=== PATIENT | male | born 1975 | race Caucasian/White ===

== ENCOUNTER → 2018-06-19 | Outpatient (CLI) | payer OTHER | LOC: MHCPAIN 13:15 | DX: G89.29 Other chronic pain (principal); M47.817 Spondylosis without myelopathy or radiculopathy, lumbosacral region; M54.16 Radiculopathy, lumbar region; M53.3 Sacrococcygeal disorders, not elsewhere classified | CPT/HCPCS: G0463 ==

== ENCOUNTER → 2018-06-27 | Outpatient (CLI) | payer OTHER | LOC: MHCPAIN 09:44 | DX: M47.817 Spondylosis without myelopathy or radiculopathy, lumbosacral region (principal); M54.16 Radiculopathy, lumbar region | CPT/HCPCS: J1100; Q9967 ==

== ENCOUNTER → 2018-07-09 | Outpatient (CLI) | payer OTHER | LOC: MHCPAIN 09:44 | DX: G89.29 Other chronic pain (principal); M47.817 Spondylosis without myelopathy or radiculopathy, lumbosacral region; M54.16 Radiculopathy, lumbar region; M53.3 Sacrococcygeal disorders, not elsewhere classified | CPT/HCPCS: G0463 ==

== ENCOUNTER → 2018-07-18 | Outpatient (CLI) | payer OTHER | LOC: MHCPAIN 09:49 | DX: M47.817 Spondylosis without myelopathy or radiculopathy, lumbosacral region (principal); M54.16 Radiculopathy, lumbar region | CPT/HCPCS: J1100; Q9967 ==

== ENCOUNTER → 2018-07-31 | Outpatient (CLI) | payer OTHER | LOC: MHCPAIN 09:59 | DX: G89.29 Other chronic pain (principal); M47.817 Spondylosis without myelopathy or radiculopathy, lumbosacral region; M54.16 Radiculopathy, lumbar region; M53.3 Sacrococcygeal disorders, not elsewhere classified | CPT/HCPCS: G0463 ==

== ENCOUNTER 2021-04-03 00:02 | Inpatient (IN) | payer OTHER ==
[~2021-04-03] VITALS: Ht 180.3 cm; Wt 104.1 kg
[~2021-04-03 00:02] MED LIST: ARTIFICIAL TEAR15 M7 OP; BUSPAR5 MG PO; COREG 6.256.25 MG/TA PO; DECADRON 1MG TAB1 MG PO; GLUCOPHAGE500 MG/TAB PO; LOVENOX 4040 MG/0.4 SQ; MELATIN 3 MG-11 TAB PO; MUCINEX 60600 MG/TA1 PO; NASAL MOISTURIZ45 ML NS; PEPCID 20MG TAB20 MG PO; PRAVACHOL 20MG20 MG PO; XANAX .25M0.25 MG/TA PO; ZESTRIL 10MG10 MG PO; ZOLOFT 50MG50 MG PO
[2021-04-03 01:09] LABS: BASO # 0.1 K/mm3 (0.0-0.2); BASO % 0.4 % (0.0-2.0); EOS # 0.1 K/mm3 (0.0-0.7); EOS % 1.1 % (0.0-4.0); GRAN # 9.3 K/mm3 (1.4-6.5); GRAN % 72.2 % (42.2-75.2); HEMATOCRIT 38.1 % (42.0-52.0); HEMOGLOBIN 12.3 g/dl (13.5-18.0); LYMPH # 2.2 K/mm3 (1.2-3.4); LYMPH % 17.4 % (20.0-51.0); MEAN CELL VOLUME 89 fl (80.0-100.0); MEAN CORPUSCULAR HEMOGLOBIN 29 pg (27-31); MEAN CORPUSCULAR HGB CONC 32 g/dl (33.0-37.0); MEAN PLATELET VOLUME 11.2 fl (7.4-10.4); MONO # 1.1 K/mm3 (0.1-0.6); MONO % 8.4 % (1.7-9.3); PLATELET COUNT 229 K/mm3 (130-400); RED BLOOD COUNT 4.29 M/mm3 (4.20-5.60); REDCELL DISTRIBUTION WIDTH-CV 14.3 % (11.5-14.5)
[2021-04-03 01:29] LABS: ALANINE AMINOTRANSFERASE 22 U/L (0-55); ALBUMIN 3.7 gm/dL (3.5-5.0); ALKALINE PHOSPHATASE 68 U/L (40-150); ANION GAP 9 mmol/L (7-16); AST,SGOT 10 U/L (5-34); BILIRUBIN,TOTAL 0.3 mg/dL (0.2-1.2); BLOOD UREA NITROGEN 9 mg/dL (9-21); C-REACTIVE PROTEIN 2.34 mg/dL (0.00-0.50); CALCIUM 9.3 mg/dL (8.4-10.2); CARBON DIOXIDE 25 mmol/L (22-29); CHLORIDE 107 mmol/L (98-107); CREATININE, serum 0.62 mg/dL (0.72-1.25); GLUCOSE 103 mg/dL (70-99); POTASSIUM 3.9 mmol/L (3.5-4.5); SODIUM 141 mmol/L (136-145); TOTAL PROTEIN 6.3 gm/dL (6.2-8.1)
[2021-04-03 01:35] LABS: TROPONIN-I < 0.010 ng/mL (0.00-0.033)
--- NOTE | 2021-04-03 05:20 | NUR ---
RECEIVED REPORT FROM Jaime SEYMOUR, RAZ. WAITING FOR PATIENT ARRIVAL FOR ADMIT TO ROOM 316.
--- NOTE | 2021-04-03 05:37 | NUR ---
PATIENT ARRIVED TO ROOM 316 VIA W/C WITH Jaime RN PRESENT TO TRANSPORT PATIENT TO UNIT. PATIENT SITTING AT SIDE OF BED CURRENTLY. ON ROOM. REPORT CHEST PAIN WITH DEEP BREATHES TAKEN.
[2021-04-03] MEDS ORDERED: ATIVAN 0.50.5 MG/TAB PO (05:48)
--- NOTE | 2021-04-03 06:15 | NUR ---
PATIENT REPORTING HAVING PROBLEMS WITH BREATHING, REQUESTING R.T TREATMENT. INFORMED R.T. OF PATIENT'S REQUEST.
--- NOTE | 2021-04-03 07:00 | NUR ---
HOSPITALIST PROVIDER MESHA MACHUCA APRN, CLARIFIED CONSULT FROM GI TO ENT REGARDING HEALING PREV. TRACH SITE. INFORMED DAY RN OF CONSULT CLARIFICATION AND WILL CONTACT ENT PROVIDER BRIGETTE.
[2021-04-03 07:19] VITALS: BP 150/89; PULSE 94; TEMP 97.8
--- NOTE | 2021-04-03 07:21 | NUR ---
CHANGE OF SHIFT REPORT GIVEN TO DAY SHIFT RNKORTNEY.
[2021-04-03 11:50] VITALS: BP 154/94; PULSE 84; TEMP 97.7
--- NOTE | 2021-04-03 11:52 | NUR ---
Patient expressed breathing discomfort, feels as though his throat is tight and swelling. Dr. Chan notified and assessed. ENT consult called and Dr. Gibson stated he would be in sometime this afternoon to assess the patient. Otherwise, patient does not have any complaints/concerns. Patient's is at the bedside.
--- NOTE | 2021-04-03 14:53 | NUR ---
GINO met with pt, ex- present in room. They are engaged again. Ex-, Jamarcus [id number] they live together with their 3 children. The pt reports independent on all ADLS and uses a CPAP. He reports being in [facility] recently. PCP is Ilan and gets [place] from [place]. The pt reports no DPOA-HC and is interested in DPOA-HC FORM. DC:HOME
[2021-04-03 16:27] VITALS: BP 143/88; PULSE 92; TEMP 98.6
--- NOTE | 2021-04-03 18:36 | NUR ---
Patient called stating he had swelling in his right hand and BEN lower legs. This RN assessed, and found very minimal swelling to be present. No reddness, warmth, pitting, or tenderness was present. Felecia was called and IV fluids were discontinued. Patient instructed to elevate his right arm and legs.
[2021-04-03 20:11] VITALS: BP 165/81; PULSE 99; TEMP 98.1
[2021-04-03 23:52] VITALS: BP 147/91; PULSE 98; TEMP 97.8
[2021-04-04 03:58] VITALS: BP 155/82; PULSE 97; TEMP 97.6
--- NOTE | 2021-04-04 04:21 | NUR ---
RESTING QUIETLY. NO DYSPNEA DURING INITIAL ASSESSMENT BUT PT WAS AWAKENED DURING THE NIGHT AND WAS SOMEWHAT DYSPNEIC. HE STATES HE CAN TELL HIS ESOPHAGUS IS NARROWED.
[2021-04-04 06:45] LABS: GRAN # 9.9 K/mm3 (1.4-6.5); GRAN % 86.7 % (42.2-75.2); HEMATOCRIT 42.8 % (42.0-52.0); HEMOGLOBIN 13.8 g/dl (13.5-18.0); LYMPH # 1.3 K/mm3 (1.2-3.4); LYMPH % 11.2 % (20.0-51.0); MEAN CELL VOLUME 89 fl (80.0-100.0); MEAN CORPUSCULAR HEMOGLOBIN 29 pg (27-31); MEAN CORPUSCULAR HGB CONC 32 g/dl (33.0-37.0); MEAN PLATELET VOLUME 11.2 fl (7.4-10.4); MONO # 0.2 K/mm3 (0.1-0.6); MONO % 1.6 % (1.7-9.3); PLATELET COUNT 292 K/mm3 (130-400); RED BLOOD COUNT 4.81 M/mm3 (4.20-5.60); REDCELL DISTRIBUTION WIDTH-CV 13.9 % (11.5-14.5)
[2021-04-04 07:00] LABS: CALCIUM 10.6 mg/dL (8.4-10.2); CREATININE, serum 0.69 mg/dL (0.72-1.25); POTASSIUM 4.2 mmol/L (3.5-4.5)
[2021-04-04 07:47] VITALS: BP 148/91; PULSE 106; TEMP 98.2
[2021-04-04] MEDS ORDERED: ELIQUIS 5MG PO (09:13)
[2021-04-04] MEDS ORDERED: PREDNISONE20 MG PO (09:16)
--- NOTE | 2021-04-04 09:47 | NUR ---
Patient laying in bed upon entering the room. Patient expressed concern over his elevated BP and asked if he should be on a 2nd BP medication; Hospitalist notified of this concern. Otherwise, patient's IV was covered so he could shower.
[2021-04-04] MEDS ORDERED: TRANSDERM-0.5 MG/21 TD (09:50)
--- NOTE | 2021-04-04 09:57 | NUR ---
Initial visit; Patient thanked Wire Worker for looking in on him since he's returned to the hospital and for keeping him in her prayers.
[2021-04-04 11:30] VITALS: BP 141/90; PULSE 93; TEMP 98.3
--- NOTE | 2021-04-04 13:39 | NUR ---
Patient verbalizes that he would like to establish a DPOA-HC. Form and education provided. Patient lists Jamarcus Pinonparisa ([phone]) and Miller Jarrell ([phone]). Signed copy placed in the patients chart. Original and additional copies provided back to the patient.
--- NOTE | 2021-04-04 15:19 | NUR ---
Patient discarged home w/ . IV and tele were discontinued by this RN. Patient had a panic attack before discharge. PRN ativan was given, BP was taken and was elevated (171/94); Dr. Chan and Venessa notified. Dr. Chan felt it was still safe to discharge the patient and the elevated BP was r/t the panic attack.
== END 2021-04-04 15:15 | disposition home or self-care (01) | DRG 176 ==
LOC: COL.ER 00:02 → MEDICAL 04:43
PROVIDERS: Emergency Medicine; Physician Assistant; ADMIT Internal Medicine
DX: I26.93 Single subsegmental thrombotic pulmonary embolism without acute cor pulmonale (principal); G72.81 Critical illness myopathy; G62.81 Critical illness polyneuropathy; F41.9 Anxiety disorder, unspecified; F32.A Depression, unspecified; F43.10 Post-traumatic stress disorder, unspecified; G47.00 Insomnia, unspecified; I10 Essential (primary) hypertension; E11.9 Type 2 diabetes mellitus without complications; J39.8 Other specified diseases of upper respiratory tract; E78.5 Hyperlipidemia, unspecified; G47.33 Obstructive sleep apnea (adult) (pediatric); Z87.891 Personal history of nicotine dependence; Z86.16 Personal history of COVID-19
CPT/HCPCS: 99223-AI; 99239; J1650; J2920; J7030; Q9967

== ENCOUNTER 2021-04-09 11:10 | Emergency (ER) | payer OTHER ==
[~2021-04-09] VITALS: Ht 180.3 cm; Wt 102.3 kg
[~2021-04-09 11:10] MED LIST changes: +ATIVAN 0.50.5 MG/TAB PO; +ELIQUIS 5MG PO; +PREDNISONE20 MG PO; +TRANSDERM-0.5 MG/21 TD
[2021-04-09 11:14] VITALS: TEMP 98.1
[2021-04-09] MEDS ORDERED: PREDNISONE10 MG PO (12:52)
[2021-04-09 13:01] VITALS: BP 118/92; PULSE 100
== END 2021-04-09 13:08 | disposition home or self-care (01) ==
LOC: COL.ER 11:10
DX: R06.1 Stridor (principal); Z86.711 Personal history of pulmonary embolism; Z86.16 Personal history of COVID-19; Z79.01 Long term (current) use of anticoagulants
CPT/HCPCS: J7512